=== PATIENT | female | born 1945 | race Hispanic/Latino ===

== ENCOUNTER 2018-04-19 14:10 | Inpatient (IN) | payer OTHER ==
--- NOTE | 2018-04-19 14:58 | RAD REPORT ---
EXAM DESCRIPTION: CT - Head Brain Wo Cont - 04/19/2018 2:48 pm CLINICAL HISTORY: Transient alteration of awareness COMPARISON: None. TECHNIQUE: Axial 5 mm thick images of the head were obtained without IV contrast. All CT scans are performed using dose optimization technique as appropriate and may include automated exposure control or mA/KV adjustment according to patient size. FINDINGS: No intracranial hemorrhage, mass, edema or shift of mid-line structures. Exam has motion d egradation. No cortical edema or sulcal effacement. Atrophy changes are relatively mild. Patient has advanced chronic ischemic change. Old right temporal occipital infarction changes are present. Ventri cles are in proportion to any volume loss. No abnormal extra-axial fluid collections. Mastoid air cells and visualized portions of the paranasal sinuses are clear. No acute bony findings. IMPRESSION: No hemorrhage, mass or acute intracranial finding seen. Atrophy and chronic ischemic changes are present along with old infarction change. Chronic ischemic change can mask nonhemorrhagic acute CVA.
[2018-04-19 15:12] LABS: Absolute Lymphocytes (CBC) 0.6 K/uL (0.7-4.9); Absolute Monocytes 0.4 K/uL (0.1-1.3); Absolute Neutrophil 13.5 K/uL (1.8-8.0); Basophils % 0.1 % (0-1.3); Hematocrit 32.7 % (36.0-45.0); MPV 7.6 fL (7.6-11.3); Monocytes % 2.6 % (3.3-12.3); Protime INR 3.3; RBC Red Blood Cell Count 3.29 M/uL (3.86-4.86)
[2018-04-19 15:21] LABS: Bilirubin Direct 1.3 mg/dL (0-0.2); Bilirubin Total 2.2 mg/dL (0.2-1.0); Potassium 4.1 mmol/L (3.5-5.1); Protein, Total 7.1 g/dL (6.4-8.2)
--- NOTE | 2018-04-19 15:29 | RAD REPORT ---
EXAM DESCRIPTION: RAD - Chest Single View - 04/19/2018 2:59 pm CLINICAL HISTORY: Liver failure, abnormal liver function COMPARISON: None. TECHNIQUE: AP portable chest image was obtained 1439 hour . FINDINGS: Exam is limited. There is large body habitus and substantial rotation artifact. No periphe ral mass or consolidation. Minimal failure or volume overload is not excluded. Significant pulmonary edema is not seen. Cardiomegaly is present. Vasculature within normal limits. Small right pleural eff usion is present. No acute bony abnormality seen. No acute aortic findings suspected. IMPRESSION: Cardiomegaly is present. Vasculature and lung markings are prominent with baseline unkno wn. Mild failure/ volume overload is suspected. Small right pleural effusion.
[2018-04-19 16:09] LABS: Urine Amorphous Sediment 2+ /HPF (NONE SEEN); Urine Bacteria <20 /HPF (<20); Urine Culture Reflex Order NOT NEEDED; Urine Mucus 2+ /HPF (NONE SEEN)
[2018-04-19 16:09] LABS: Urine Blood 2+ (NEG); Urine Glucose NEGATIVE (NEG); Urine Protein TRACE (NEG); Urine Specific Gravity 1.015 (1.005-1.030)
--- NOTE | 2018-04-19 16:49 | EDPHYS ---
Physician Documentation [facility] Name: Anne Moore Age: 72 yrs Sex: Female : 1945 Arrival Date: 04/19/2018 Time: 14:10 Bed 2 Private MD: ED Physician Noel Ospina HPI: 04/19 14:12 This 72 yrs old Female presents to ER via Unassigned with complaints of rn Altered Mental Status. 14:12 The patient presents with confusion. Onset: The symptoms/episode began/occurred at an rn unknown time. Possible causes: unknown. Current symptoms: In the emergency department the patient's symptoms are unchanged from the initial presentation. The patient has experienced similar episodes in the past. Per EMS, family called out for increased confusion, per report told that she has "advanced liver failure", has been compliant with lactulose and meds, no known trauma. Lays in bed most of day, found laying on right side with right arm hanging off of bed. Family states fluid tends to "favor right side". . Historical: - Allergies: 14:16 No Known Allergies; hj - PMHx: 14:16 liver disease; Dementia; hj - PSHx: 14:16 Unable to obtain; hj - Immunization history:: Adult Immunizations up to date. - Social history:: Smoking status: Patient/guardian denies using tobacco, Patient/guardian denies using alcohol. - Family history:: unknown. - Ebola Screening: : Patient negative for fever greater than or equal to 101.5 degrees Fahrenheit, and additional compatible Ebola Virus Disease symptoms Patient denies exposure to infectious person Patient denies travel to an Ebola-affected area in the 21 days before illness onset. ROS: 14:12 Unable to obtain ROS due to altered mental status. rn Exam: 14:12 Constitutional: Overweight female, not cooperative and not answering questions rn Head/Face: Normocephalic, atraumatic. Eyes: Pupils equal round and reactive to light ENT: dry MM Neck: Trachea midline, no thyromegaly or masses palpated, and no cervical lymphadenopathy. Supple, full range of motion without nuchal rigidity, or vertebral point tenderness. No Meningismus. Cardiovascular: Regular rate and rhythm. No pulse deficits. Respiratory: Diminished breath sounds bilateral bases Abdomen/GI: + protruberant abdomen with fluid wave, no peritoneal signs, no masses, + firmer skin on right abdomen. Skin: Warm, dry, + stage 2 ulcers low back MS/ Extremity: Pulses equal, no cyanosis. 3+ pitting edema RUE/RLE. Neuro: Awake, appears confused, moves all 4 extremities and withdraws to painful stimuli, but no purposeful answers. Vital Signs: 14:16 BP 161 / 114; Pulse 69; Resp 18; Pulse Ox 100% on 2 lpm NC; Weight 145.15 kg; Height 5 hj ft. 2 in. (157.48 cm); 15:36 BP 155 / 100; Pulse 66; Resp 18; Pulse Ox 100% on 2 lpm NC; hj 16:27 BP 132 / 50; Pulse 68; Resp 18; Pulse Ox 100% on R/A; hj 18:33 BP 161 / 71; Pulse 71; Resp 18; Pulse Ox 100% on 2 lpm NC; hj 19:05 BP 159 / 87; Pulse 68; Resp 17; Pulse Ox 99% 2 lpm ; rr5 20:06 BP 152 / 70; Pulse 68; Resp 18; Temp 97.8; Pulse Ox 100% ; ea 21:04 BP 153 / 75; Pulse 73; Resp 18; Pulse Ox 100% ; ea 14:16 Body Mass Index 58.53 (145.15 kg, 157.48 cm) hj MDM: 14:10 Patient medically screened. rn 16:45 Differential Diagnosis: CVA, electrolyte abnormality, hypoglycemia, pneumonia, sepsis, rn UTI, volume depletion. Data reviewed: vital signs, nurses notes, lab test result(s), EKG, radiologic studies, CT scan, plain films, and as a result, I will admit patient. Counseling: I had a detailed discussion with the patient and/or guardian regarding: the historical points, exam findings, and any diagnostic results supporting the discharge/admit diagnosis, lab results, radiology results, the need for further work-up and treatment in the hospital. Response to treatment: There is no appreciated change of the patient's symptoms at this time, and as a result, I will admit patient. Admission orders: after a detailed discussion of the patient's condition and case, the admit orders are written by me. ED course: Will admit patient to [facility] for further care, Ammonia higher but wnl, patient seems encephalopathic, recommend MRI brain to rule out CVA, and ct abd ordered to rule out infectious process in abdomen. . 04/19 14:12 Order name: CBC with Diff rn 04/19 14:12 Order name: Basic Metabolic Panel; Complete Time: 15:25 rn 04/19 14:12 Order name: Urine Microscopic Only; Complete Time: 16:18 rn 04/19 14:12 Order name: Urine Culture rn 04/19 14:12 Order name: AMMONIA; Complete Time: 15:49 rn 04/19 14:12 Order name: PT-INR; Complete Time: 15:25 rn 04/19 14:12 Order name: CT Head Brain wo Cont; Complete Time: 15:25 rn 04/19 14:12 Order name: XRAY Chest (1 view); Complete Time: 15:49 rn 04/19 14:12 Order name: Blood Culture Adult (2) rn 04/19 14:12 Order name: LFT's; Complete Time: 15:25 rn 04/19 14:12 Order name: CK; Complete Time: 15:25 rn 04/19 15:49 Order name: Urine Dipstick--Ancillary (enter results) em 04/19 16:40 Order name: CT Abd/Pelvis - W/Contrast: IV contrast only; Complete Time: 17:42 rn 04/19 14:12 Order name: IV Start; Complete Time: 15:40 rn 04/19 14:12 Order name: Urine Dipstick-Ancillary (obtain specimen); Complete Time: 15:40 rn 04/19 14:12 Order name: EKG; Complete Time: 14:13 rn 04/19 14:12 Order name: EKG - Nurse/Tech; Complete Time: 15:40 rn Administered Medications: 16:39 Drug: Lactulose 30 grams Volume: 45 ml; Route: PO; hj 16:49 Follow up: Response: No adverse reaction hj 16:42 Drug: NS 0.9% 500 ml Route: IV; Rate: bolus; Site: left forearm; hj 16:49 Follow up: IV Status: Infusion continued Disposition: 04/19/18 16:48 Hospitalization ordered by Britany Grady for Inpatient Admission. Preliminary diagnosis are Encephalopathy, unspecified, Dehydration. - Bed requested for Telemetry/MedSurg (Inpatient). - Status is Inpatient Admission. ea - Condition is Stable. - Problem is new. - Symptoms are unchanged. UTI on Admission? No Signatures: Dispatcher [employer] EDMS Noel Ospina MD MD rn Joaquin, Henry RN Loree Hurtado RN RN df Antunez, Elena, RN RN ea Corrections: (The following items were deleted from the chart) 16:42 14:12 Constitutional: Overweight female, not cooperative and not answering questions rn Head/Face: Normocephalic, atraumatic. Eyes: Pupils equal round and reactive to light ENT: dry MM Neck: Trachea midline, no thyromegaly or masses palpated, and no cervical lymphadenopathy. Supple, full range of motion without nuchal rigidity, or vertebral point tenderness. No Meningismus. Cardiovascular: Regular rate and rhythm. No pulse deficits. Respiratory: Diminished breath sounds bilateral bases Abdomen/GI: + protruberant abdomen with fluid wave, no peritoneal signs, no masses, + firmer skin on right abdomen. MS/ Extremity: Pulses equal, no cyanosis. 3+ pitting edema RUE/RLE. Neuro: Awake, appears confused, moves all 4 extremities and withdraws to painful stimuli, but no purposeful answers. rn 18:15 16:48 Hospitalization Ordered by Britany Grady MD for Inpatient Admission. Preliminary df diagnosis is Encephalopathy, unspecified; Dehydration. Bed requested for Telemetry/MedSurg (Inpatient). Status is Inpatient Admission. Condition is Stable. Problem is new. Symptoms are unchanged. UTI on Admission? No. rn 21:05 18:15 04/19/2018 16:48 Hospitalization Ordered by Britany Grady MD for Inpatient ea Admission. Preliminary diagnosis is Encephalopathy, unspecified; Dehydration. Bed requested for Telemetry/MedSurg (Inpatient). Status is Inpatient Admission. Condition is Stable. Problem is new. Symptoms are unchanged. UTI on Admission? No. df
--- NOTE | 2018-04-19 16:49 | ER ---
Nurse's Notes [facility] Name: Anne Moore Age: 72 yrs Sex: Female : 1945 Arrival Date: 04/19/2018 Time: 14:10 Bed 2 Private MD: Diagnosis: Encephalopathy, unspecified;Dehydration Presentation: 04/19 14:12 Presenting complaint: EMS states: from [place], called for pt on altered mental hj status, hx of liver failure, obesity; per EMS, pt is A\T\O x1-2; BP- stable, presence of edema;. Transition of care: patient was not received from another setting of care. Onset of symptoms was April 19, 2018. Risk Assessment: Do you want to hurt yourself or someone else? Patient reports no desire to harm self or others. Initial Sepsis Screen: Does the patient meet any 2 criteria? No. Patient's initial sepsis screen is negative. Does the patient have a suspected source of infection? No. Patient's initial sepsis screen is negative. Care prior to arrival: None. 14:12 Method Of Arrival: EMS: [facility] 14:12 Acuity: JUAN 3 hj Triage Assessment: 14:17 General: Appears in no apparent distress. uncomfortable, Behavior is calm, cooperative, hj appropriate for age. Pain: Unable to use pain scale. AMS. Neuro: Level of Consciousness is awake, Oriented to none. Historical: - Allergies: 14:16 No Known Allergies; hj - PMHx: 14:16 liver disease; Dementia; hj - PSHx: 14:16 Unable to obtain; hj - Immunization history:: Adult Immunizations up to date. - Social history:: Smoking status: Patient/guardian denies using tobacco, Patient/guardian denies using alcohol. - Family history:: unknown. - Ebola Screening: : Patient negative for fever greater than or equal to 101.5 degrees Fahrenheit, and additional compatible Ebola Virus Disease symptoms Patient denies exposure to infectious person Patient denies travel to an Ebola-affected area in the 21 days before illness onset. Screenin:17 Abuse screen: Denies threats or abuse. Denies injuries from another. Nutritional hj screening: No deficits noted. Tuberculosis screening: No symptoms or risk factors identified. Fall Risk None identified. Assessment: 15:21 General: Appears in no apparent distress. uncomfortable, Behavior is calm, cooperative, hj appropriate for age. Pain: Unable to use pain scale. Patient is disoriented. Neuro: Level of Consciousness is awake, confused, Oriented to none. Cardiovascular: Capillary refill < 3 seconds Patient's skin is warm and dry. Respiratory: Airway is patent Respiratory effort is even, unlabored, Respiratory pattern is regular, symmetrical. GI: No signs and/or symptoms were reported involving the gastrointestinal system. : No signs and/or symptoms were reported regarding the genitourinary system. EENT: No signs and/or symptoms were reported regarding the EENT system. Derm: Decubitus located on bilateral buttocks is stage II has erythematous edges Reports. 16:26 Reassessment: Patient and/or family updated on plan of care and expected duration. Pain hj level reassessed. family in room, awaiting results and POC:. 16:51 Reassessment: Patient and/or family updated on plan of care and expected duration. Pain hj level reassessed. pt refused to drink lactulose; MD notified;. 17:00 Reassessment: Patient and/or family updated on plan of care and expected duration. Pain hj level reassessed. pt was given lactulose 3 mls at a time using syringes; able to tolerate;. 17:15 Reassessment: wheeled to CT;. hj 17:30 Reassessment: Patient and/or family updated on plan of care and expected duration. Pain hj level reassessed. wheeled back to room from CT;. 19:00 General: Appears in no apparent distress. uncomfortable, Behavior is calm. Pain: Unable rr5 to use pain scale. Patient is disoriented. Neuro: Level of Consciousness is awake, confused, Oriented to none. Cardiovascular: Capillary refill < 3 seconds Patient's skin is warm and dry. Respiratory: Airway is patent Respiratory effort is even, unlabored, Respiratory pattern is regular, symmetrical. GI: Abdomen is obese. : Urine is tea colored. EENT: No signs and/or symptoms were reported regarding the EENT system. Derm: Skin is intact, Skin temperature is warm Decubitus located on bilateral bilateral gluteal, skin folds groin area raw redness noted is stage II has erythematous edges. 19:00 Musculoskeletal: Capillary refill < 3 seconds. rr5 19:30 General: Appears in no apparent distress. Behavior is drowsy. Pain: Denies pain. Neuro: ea Level of Consciousness is awake, confused, Oriented to person. Cardiovascular: Patient's skin is warm and dry. Respiratory: Airway is patent Respiratory effort is even, unlabored, Respiratory pattern is regular, symmetrical. GI: Abdomen is obese, noted to have ascites. Derm: Skin is fragile, Skin temperature is warm discoloration noted to tito lower extremities Decubitus. 20:04 Reassessment: Report called to receiving nurse on fourth floor. ea 21:02 Reassessment: Patient and/or family updated on plan of care and expected duration. Pain ea level reassessed. Pt taken via stretcher per tech. Respirations even and unlabored, chest expansions even and symmetrical. No s/s of pain or discomfort at this time. Vital Signs: 14:16 BP 161 / 114; Pulse 69; Resp 18; Pulse Ox 100% on 2 lpm NC; Weight 145.15 kg; Height 5 hj ft. 2 in. (157.48 cm); 15:36 BP 155 / 100; Pulse 66; Resp 18; Pulse Ox 100% on 2 lpm NC; hj 16:27 BP 132 / 50; Pulse 68; Resp 18; Pulse Ox 100% on R/A; hj 18:33 BP 161 / 71; Pulse 71; Resp 18; Pulse Ox 100% on 2 lpm NC; hj 19:05 BP 159 / 87; Pulse 68; Resp 17; Pulse Ox 99% 2 lpm ; rr5 20:06 BP 152 / 70; Pulse 68; Resp 18; Temp 97.8; Pulse Ox 100% ; ea 21:04 BP 153 / 75; Pulse 73; Resp 18; Pulse Ox 100% ; ea 14:16 Body Mass Index 58.53 (145.15 kg, 157.48 cm) ED Course: 14:10 Patient arrived in ED. hj 14:10 Noel Ospina MD is Attending Physician. rn 14:14 Triage completed. hj 14:18 Amos Gil, RADHA is Primary Nurse. hj 14:18 Arm band placed on right wrist. hj 14:18 Patient has correct armband on for positive identification. Placed in gown. Bed in low hj position. Call light in reach. Side rails up X2. 14:40 X-ray completed. Portable x-ray completed in exam room. Patient tolerated procedure jb2 well. 14:41 XRAY Chest (1 view) In Process Unspecified. EDMS 14:45 CT Head Brain wo Cont In Process Unspecified. EDMS 14:45 Initial lab(s) drawn, by me, sent to lab. First set of blood cultures drawn by me. hj 14:48 EKG done, by animal health technician. reviewed by Noel Ospina MD. at1 15:00 Second set of blood cultures drawn by me. hj 15:37 Inserted saline lock: 22 gauge in left Blood collected. hj 15:40 Dressings: Tegaderm X 2; buttocks Vaseline gauze X 2; buttocks. Goodson cath inserted, ag using sterile technique, 16 Fr., by me, balloon inflated, to gravity drainage, clamped. urine specimen collected. 16:47 Britany Grady MD is Hospitalizing Provider. rn 16:[address] via stretcher. nj 17:18 CT completed. Patient tolerated procedure well. Patient moved back from CT. 2 17:18 CT Abd/Pelvis - W/Contrast: IV contrast only In Process Unspecified. EDMS 19:00 cardiac monitor on. Pulse ox on. NIBP on. rr5 19:15 Tl Vega, RADHA is Primary Nurse. rr5 20:02 No provider procedures requiring assistance completed. Patient admitted, IV remains in ea place. Administered Medications: 16:39 Drug: Lactulose 30 grams Volume: 45 ml; Route: PO; hj 16:49 Follow up: Response: No adverse reaction hj 16:42 Drug: NS 0.9% 500 ml Route: IV; Rate: bolus; Site: left forearm; hj 16:49 Follow up: IV Status: Infusion continued Outcome: 16:48 Decision to Hospitalize by Provider. rn 19:30 Instructed on Family educated on need for hospitalization, verbalized the understanding ea of instruction 20:09 Condition: stable ea 20:12 Admitted to Med/surg accompanied by tech, via stretcher, room 228, with oxygen, Report ea called to Receiving nurse on second floor. 21:05 Patient left the ED. ea Signatures: Dispatcher [employer] EDTN Cornelio Holden2 Noel Ospina MD MD rn Gonzales, Amanda, cement side laster EKG Tat1 Arely Hu ag Amos Gil RN RN Orlin Segura [facility] Tessie Joe, RN RN Tl Smith, RN RN rr5 Corrections: (The following items were deleted from the chart) 15:37 15:36 BP 155 / 100; Pulse 52bpm; Resp 18bpm; Pulse Ox 100% 2 lpm Nasal Cannula; hj hj 21:01 20:04 Reassessment: Report called to receiving nurse on fourth floor. shae kaufman 21: 21:02 Reassessment: Patient and/or family updated on plan of care and expected ea duration. Pain level reassessed. Pt taken via stretcher per tech. ea
[2018-04-19] MEDS ORDERED: LACTULOSE 20 GM/30 ML UCUP ONE (16:52)
[2018-04-19] MEDS ORDERED: NA CHLORIDE 0.9% 500 ML ONE (16:56)
--- NOTE | 2018-04-19 17:28 | RAD REPORT ---
EXAM DESCRIPTION: CTAbdomen Pelvis W Contrast - 04/19/2018 5:18 pm CLINICAL HISTORY: Abdominal pain. AMS, liver failure, ascites, IV contrast only COMPARISON: No comparisons TECHNIQUE: Biphasic CT imaging of the abdomen and pelvis was performed with 100 ml non-ionic IV cont rast. All CT scans are performed using dose optimization technique as appropriate and may include automated exposure control or mA/KV adjustment according to patient size. FINDINGS: Small moderate right pleural effusion is seen with right basilar atelectasis. The liver is small size with an irregular contour suggesting cirrhotic changes. Overall, liver assess ment is poor due to artifact. The spleen, pancreas, adrenal glands and kidneys show no acute process. No bowel obstruction, free air, free fluid or abscess. 4.5 cm left adnexal cystic structure present. The appendix is normal. No evidence of significant lymphadenopathy. No suspicious bony findings. IMPRESSION: Small cirrhotic liver suspected. No significant ascites. Moderate right pleural effusion right basilar atelectasis.
[2018-04-19] MEDS ORDERED: ONDANSETRON 4 MG/2 ML VIAL IV PRN (20:22)
[2018-04-19 22:19] LABS: Anisocytosis 2+; Blood Morphology Comment NOTED (NOT SEEN); Platelet Estimate ADEQ; Toxic Granulation PRESENT; Urine White Blood Cell Casts OK
[2018-04-20 05:41] LABS: Absolute Lymphocytes (CBC) 0.7 K/uL (0.7-4.9); Absolute Monocytes 0.7 K/uL (0.1-1.3); Absolute Neutrophil 13.6 K/uL (1.8-8.0); Basophils % 0.1 % (0-1.3); Eosinophils % 0.4 % (0-4.4); Hematocrit 34.6 % (36.0-45.0); Lymphocytes % 4.9 % (15.3-44.8); MPV 7.8 fL (7.6-11.3); Monocytes % 4.6 % (3.3-12.3); RBC Red Blood Cell Count 3.43 M/uL (3.86-4.86)
[2018-04-20 06:03] LABS: Bilirubin Total 2.2 mg/dL (0.2-1.0); Potassium 4.5 mmol/L (3.5-5.1); Protein, Total 6.9 g/dL (6.4-8.2)
[2018-04-20] MEDS: LACTULOSE 20 GM/30 ML UCUP PO SCH ×3 (07:00→18:19)
[2018-04-20] MEDS ORDERED: NA CHLORIDE 0.9% 1,000 ML IV SCH (07:00)
[2018-04-20] MEDS: Rifaximin 550 MG Tab PO SCH ×2 (07:00→22:07)
[2018-04-20] MEDS ORDERED: NA CHLORIDE 0.9% 1,000 ML ONE (07:02)
[2018-04-20] MEDS ORDERED: ALBUMIN HUMAN 25% 100 ML IV ONE ×2 (07:22→11:02)
[2018-04-20] MEDS ORDERED: LACTULOSE 20 GM/30 ML UCUP PR ONE (07:30)
[2018-04-20 07:33] LABS: Urine Appearance CLEAR; Urine Bilirubin NEGATIVE (NEG); Urine Blood 3+ (NEG); Urine Color DK YELLOW; Urine Glucose NEGATIVE (NEG); Urine Protein NEGATIVE (NEG); Urine Specific Gravity >=1.030 (1.005-1.030); Urine Urobilinogen 0.2 mg/dL (0.2-1.0); Urine pH 5.5 (5.0-7.0)
[2018-04-20 07:40] LABS: Urine Microscopic Reflex ORDER UMIC
[2018-04-20 07:44] LABS: Urine Bacteria <20 /HPF (<20); Urine Culture Reflex Order REFLEXED; Urine RBC 20-50 /HPF (NONE SEEN)
[2018-04-20] MEDS ORDERED: VITAMIN K (ADULT) 10 MG/ML SQ ONE (08:00)
--- NOTE | 2018-04-20 08:19 | P.HP ---
Certification for Inpatient Patient admitted to: Inpatient With expected LOS: >2 Midnights Patient will require the following post-hospital care: None Practitioner: I am a practitioner with admitting privileges, knowledge of patient current condition, hospital course, and medical plan of care. Services: Services provided to patient in accordance with Admission requirements found in Title 42 Section 412.3 of the Code of Federal Regulations Patient History Date of Service: 04/19/18 Reason for admission: Hepatic encephalopathy History of Present Illness: Patient is a 72-year-old female came into the hospital with altered mentation. Patient was living at [facility]. The son came to visit and found her arm dangling from the bed. She was lethargic. She was difficult to arouse, but would open her eyes up to up to stimuli. In the ER, she was given lactulose and had multiple diagnostic studies. Her lab data indicated advancing liver disease. Her MELD score is approximately 25. Increase mortality over the next 90 days. Patient is not a good candidate for any kind of advance surgical intervention. Have not been able to get a hold of the son as the phone numbers in the chart are incorrect. Spoke to the nursing facility and they did not have any different numbers. They do not have a DNR on file. At this time will continue with the lactulose and Rifaximin to her medications. CT of the brain was negative. She also has multiple wounds on her right foot can her lower back. Will get wound Healing Consult as well. Repeat labs in a.m. Allergies No Known Allergies Allergy (Unverified 04/19/18 22:05) Home Medications: Guaifenesin/Dextromethorphan [Guaifenesin Dm Syrup] 10 ml PO Q4H PRN 04/19/18 Metoprolol Tartrate 1 tab PO BID 04/19/18 Multivitamin [Multiple Vitamins] 1 each PO DAILY 04/19/18 Rivastigmine Tartate 1.5 Mg 1 cap PO BID 04/19/18 Tramadol HCl [Ultram] 2 tab PO Q6H PRN 04/19/18 Zinc 220 mg PO DAILY 04/19/18 - Past Medical/Surgical History Has patient received pneumonia vaccine in the past: No Diabetic: No -: HTN -: dementia -: Depression -: End-stage liver disease -: Anxiety Past Surgical History: Unable to obtain - Family History Father Family History: Reviewed- Non-Contributory - Social History Smoking Status: Never smoker Alcohol use: No CD- Drugs: No Caffeine use: Yes Place of Residence: Custodial Review of Systems 10-point ROS is otherwise unremarkable Physical Examination - Vital Signs Temperature: 97.5 F Blood Pressure: 147/65 Pulse: 84 Respirations: 16 Pulse Ox (%): 100 - Physical Exam General: Confused, Other (Pt is difficult to arouse to response to painful stimuli) HEENT: Atraumatic, PERRLA, Mucous membr. moist/pink, EOMI, Scleral icterus Neck: Supple, 2+ carotid pulse no bruit, No LAD, Without JVD or thyroid abnormality Respiratory: Diminished Cardiovascular: Regular rate/rhythm, Normal S1 S2, Systolic murmur Gastrointestinal: Normal bowel sounds, Soft and benign, Non-distended, No tenderness Musculoskeletal: No clubbing, No tenderness, Swelling Integumentary: Pressure ulcer (On the lower back times to as well as the right foot/heel) Neurological: Abnormal gait, Abnormal speech, Abnormal strength, Abnormal cranial nerve function Lymphatics: No axilla or inguinal lymphadenopathy - Studies Laboratory Data (last 24 hrs) 04/19/18 14:40: PT 37.2 H, INR 3.30 04/19/18 14:40: Sodium 138, Potassium 4.1, BUN 39 H, Creatinine 1.16, Glucose 100, Total Bilirubin 2.2 H, AST 99 H, ALT 30, Alkaline Phosphatase 272 H 04/19/18 14:40: WBC 14.5 H D, Hgb 10.8 L, Hct 32.7 L, Plt Count 165 Assessment & Plan - Problems (Diagnosis) (1) Hepatic encephalopathy Current Visit: Yes Status: Acute (2) End stage liver disease Current Visit: Yes Status: Acute (3) Coagulopathy Current Visit: Yes Status: Acute - Plan PLAN: 1. Continue lactulose and rifaximin 2. Gentle hydration 3. Discuss with family regarding code status 4. If unable to swallow retention enema 5. Vitamin K 6. IV albumin 7. Poor prognosis with a meld score of 25. 90 day mortality estimated at 20%. 8. GI prophylaxis Discharge Plan: Custodial Plan to discharge in: Greater than 2 days - Advance Directives Does patient have a Living Will: No Does patient have a Durable POA for Healthcare: No - Code Status/Comfort Care Code Status Assessed: Yes Code Status: Full Code Critical Care: No Time Spent Managing PTS Care (In Minutes): 50
--- NOTE | 2018-04-20 08:42 | P.PN ---
Date of Service: 04/20/18 Got a hold of son Tyler Moore, . Updated him on his mother status. Spoke to him about her end-stage liver disease. He wanted her to be a full code. Will transfer to ICU and monitor closely.
[2018-04-20] MEDS: METOPROLOL TAR 25 MG TAB PO SCH ×2 (09:00→18:16)
[2018-04-20] MEDS ORDERED: levETIRAcetam 500 MG in NA CHLORIDE 0.9% 100 ML IV SCH (09:54)
[2018-04-20] MEDS ORDERED: PNEUMOCOCCAL VACCINE 0.5 ML IMVAC ONE (10:00)
[2018-04-20 10:47] LABS: Arterial Blood Carboxyhemoglob 1.4 % (0-1.5); Blood Gas Oxyhemoglobin 96.9 % (94-97); Blood O2 Saturation 98.9 % (92-98.5)
[2018-04-20 11:01] LABS: Absolute Lymphocytes (CBC) 0.7 K/uL (0.7-4.9); Absolute Monocytes 0.3 K/uL (0.1-1.3); Absolute Neutrophil 9.1 K/uL (1.8-8.0); Basophils % 0.2 % (0-1.3); Lymphocytes % 6.7 % (15.3-44.8); MPV 8.5 fL (7.6-11.3); Monocytes % 3.2 % (3.3-12.3); RBC Red Blood Cell Count 4.73 M/uL (3.86-4.86)
[2018-04-20] MEDS ORDERED: SODIUM CHLORIDE 0.9% 10ML INJ IV PRN (11:04)
[2018-04-20 11:09] LABS: Albumin 1.2 g/dL (3.4-5.0); Bilirubin Total 2.4 mg/dL (0.2-1.0); Potassium 4.1 mmol/L (3.5-5.1); Protein, Total 7.2 g/dL (6.4-8.2)
[2018-04-20] MEDS ORDERED: CEFTRIAXONE/SWI 1gm 1 GM/10 ML SYR IV SCH (11:15)
[2018-04-20] MEDS ORDERED: D50W 25 GM/50 ML SYRINGE IV ONE ×2 (11:27→12:40)
--- NOTE | 2018-04-20 12:21 | RAD REPORT ---
EXAM DESCRIPTION: MRI - Brain W/Wo Cont - 04/20/2018 11:49 am CLINICAL HISTORY: Transient alteration of awareness, stroke-like symptoms, abnormal CT head COMPARISON: CT head April 19 TECHNIQUE: Sagittal and axial T1-weighted images were obtained. Axial PD/heavily T2-weighted and T2- FLAIR images were obtained along with axial DWI/ADC mapping sequences. Coronal heavily T2 weighted s equence obtained. Axial and coronal post-contrast T1-weighted images were also obtained. A ml Multi shawnee contrast following utilized. FINDINGS: No intracranial hemorrhage is present and no focal mass lesion identified. There is no mas s effect, edema or shift of midline structures. Underlying atrophy and chronic ischemic changes are n oted with ventricles in proportion. Diffusion-weighted imaging shows extensive abnormal hyperintense signal along the gyri of the bilater al frontal lobes left parietal lobe and the lateral aspect of the left occipital lobe and posterior l eft temporal lobe. A few punctate patchy areas of hyperintense signal are present in the posterior ri ght temporal lobe. Abnormal signal extends deeper into the white matter of the left frontal and parie guzman lobes. All areas have corresponding diminished signal on ADC mapping. Post-contrast view show no abnormal enhancement of the brain parenchyma. There is thickened but does not abnormally enhance. No focal dural based mass. Small fluid collection along the left frontal lobe is probably a small chronic subdural hygroma. This is not an acute finding. Mastoid air cells and paranasal sinuses are clear. IMPRESSION: Very extensive acute nonhemorrhagic infarction changes involving the majority of the lef t cerebral hemisphere in the distribution of the left middle cerebral artery. Extensive acute nonhemorrhagic infarction of substantial portion of the right frontal lobe. No intracranial hemorrhage. There is no significant mass effect, edema or shift of midline structures . Underlying atrophy and chronic ischemic change.
--- NOTE | 2018-04-20 12:25 | RAD REPORT ---
EXAM DESCRIPTION: MRI - MRA Head Wo Cont - 04/20/2018 11:48 am CLINICAL HISTORY: Transient alteration of awareness, stroke-like symptoms, COMPARISON: Abnormal CT head April 19, abnormal MRI head April 20 TECHNIQUE: Axial and coronal 3D [id number] image acquisition was performed. 3D rotational images were generated with source and reconstruction images reviewed. Horizontal and vertical axis rotation al views generated using MIP protocol. FINDINGS: Distal vertebral arteries are codominant. No focal basilar artery abnormality seen. Distal internal carotid artery show no significant findings. The M1 branches of each middle cerebral artery show atherosclerotic change. There is truncation or nonvisualization of the M2 and distal branches o f each middle cerebral artery distribution. This generally matches the large infarction changes seen on the MR brain examination. Anterior cerebral artery vessels are small but not occluded. Posterior c erebral arteries are small in the P1 segments. More peripheral [employer] branches are poorly visualized. Th ere is no matching acute infarction on the CT study in the middle cerebral artery distributions. IMPRESSION: Truncated is bilateral middle cerebral artery M2/M3 branches. This pattern generally mat ches the extensive MCA distribution infarction changes on the MRI brain examination. The distal internal carotid artery's and basilar artery show no significant changes. The anterior cerebral and posterior cerebral artery branches show diminished size and truncation in t he posterior cerebral arteries. There are no matching acute infarction changes in these distributions .
--- NOTE | 2018-04-20 12:30 | RAD REPORT ---
EXAM DESCRIPTION: MRI - MRA Neck W/Wo Cont - 04/20/2018 12:02 pm CLINICAL HISTORY: Transient alteration of awareness, stroke-like symptoms, abnormal CT and MRI studi es COMPARISON: MRI imaging April 20, CT head imaging April 19 TECHNIQUE: Axial and coronal 3D [id number] image acquisition was performed. 3D rotational images were generated with source and reconstruction images reviewed. Horizontal and vertical axis rotation al views generated using MIP protocol. A 20 milliliter MultiHance contrast volume was utilized. FINDINGS: Aortic arch is 3 vessel with no origin stenosis. Origins of each vertebral artery are norm al. Vertebral arteries are codominant. No dissection, stenosis or acute vertebral artery finding. No basilar artery abnormality. Imaged portions of the subclavian arteries show no significant findings. Bilateral common carotid artery show no dissection or significant stenosis. No aneurysm or vascular m alformation. There is a short segment bandlike narrowing at the origin of the bulb. This is probably not hemodynamically significant. No significant stenoses seen in the bilateral internal carotid arter ies. IMPRESSION: No dissection or significant atherosclerotic changes in the cervical carotid or vertebra l arteries. No basilar artery stenosis.
[2018-04-20 12:56] LABS: Blood Morphology Comment NOT SEEN (NOT SEEN); Platelet Estimate DECR; Urine White Blood Cell Casts OK
[2018-04-20] MEDS: D5W 1,000 ML IV SCH (13:00)
--- NOTE | 2018-04-20 13:45 | RAD REPORT ---
EXAM DESCRIPTION: RAD - Abdomen 1 View (KUB) - 04/20/2018 1:39 pm CLINICAL HISTORY: NGT placement Pain COMPARISON: No comparisons FINDINGS: Enteric tube has its tip in the distal esophagus.
[2018-04-20] MEDS: CEFTRIAXONE/SWI 1gm 1 GM/10 ML SYR IV SCH (13:54)
--- NOTE | 2018-04-20 15:05 | RAD REPORT ---
EXAM DESCRIPTION: US - Abdomen Exam Complete - 04/20/2018 2:51 pm CLINICAL HISTORY: Abdominal pain. AMS COMPARISON: Abdomen Pelvis W Contrast dated 04/19/2018 FINDINGS: The examination was extremely limited by patient body habitus and clinical status. The liver appears small in size with nodular contour. No gross biliary dilatation seen. A right pleur al effusion is present. The gallbladder is not identified. Common bile duct is normal in caliber measuring 5 millimeters. Both kidneys are normal in size, shape and echotexture. No hydronephrosis, focal lesion of concern or perinephric fluid. The spleen is normal in size. The pancreas and aorta are obscured by bowel gas. The visualized aspects of the IVC are grossly normal. IMPRESSION: Extremely limited study without acute process identified. Small cirrhotic liver suspected. Small right pleural effusion.
[2018-04-20 15:27] LABS: Urine Appearance CLEAR; Urine Bilirubin NEGATIVE (NEG); Urine Blood 3+ (NEG); Urine Color DK YELLOW; Urine Glucose NEGATIVE (NEG); Urine Protein NEGATIVE (NEG); Urine Specific Gravity >=1.030 (1.005-1.030); Urine Urobilinogen 0.2 mg/dL (0.2-1.0)
[2018-04-20 16:00] LABS: Urine Bacteria 20-50 /HPF (<20); Urine Culture Reflex Order NOT NEEDED; Urine RBC 20-50 /HPF (NONE SEEN)
[2018-04-20] MEDS ORDERED: levETIRAcetam 500 MG in NA CHLORIDE 0.9% 100 ML IV ONE (17:30)
--- NOTE | 2018-04-20 17:43 | RAD REPORT ---
EXAM DESCRIPTION: RAD - Chest Single View - 04/20/2018 5:20 pm CLINICAL HISTORY: PICC line placement COMPARISON: None. FINDINGS: Portable chest was obtained following placement of a left upper extremity PICC line. The c atheter tip is in the mid SVC.
[2018-04-20] MEDS ORDERED: LORazepam 2 MG/ML VIAL IV PRN ×2 (17:49→19:23)
--- NOTE | 2018-04-20 18:19 | P.PN ---
Subjective Date of Service: 04/20/18 Chief Complaint: Hepatic encephalopathy Review of Systems 10-point ROS is otherwise unremarkable Physical Examination - Vital Signs Temperature: 97.5 F Blood Pressure: 117/70 Pulse: 80 Respirations: 33 Pulse Ox (%): 100 - Physical Exam General: Confused, Unresponsive (Responding to painful stimuli), Other ( Lethargic ) HEENT: Atraumatic Neck: Supple, JVD not distended Respiratory: Normal air movement, Crackles/rales, Expiratory wheezes, Inspiratory wheezes Cardiovascular: Normal S1 S2, Irregular heart rate/rhythm Gastrointestinal: Normal bowel sounds, Distended, Ascites, Tenderness Musculoskeletal: Swelling, Erythema, Tenderness, Warmth Integumentary: Skin breakdown, Pressure ulcer Neurological: Abnormal speech, Abnormal strength, Abnormal sensation, Abnormal cranial nerve function, Abnormal reflexes Lymphatics: No axilla or inguinal lymphadenopathy - Studies Laboratory Data (last 24 hrs) 04/20/18 05:20: Sodium 138, Potassium 4.5, BUN 42 H, Creatinine 1.19, Glucose 57 L, Total Bilirubin 2.2 H, AST 106 H, ALT 29, Alkaline Phosphatase 248 H 04/20/18 05:20: WBC 15.1 H, Hgb 11.5 L, Hct 34.6 L, Plt Count 129 L D 04/19/18 14:40: WBC 14.5 H D, Hgb 10.8 L, Hct 32.7 L, Plt Count 165 Medications List Reviewed: Yes Assessment And Plan - Current Problems (Diagnosis) (1) Acute CVA (cerebrovascular accident) Current Visit: Yes Status: Acute Plan: Acute CVA -MRI of the brain with: Very extensive acute nonhemorrhagic infarction changes involving the majority of the left cerebral hemisphere in the distribution of the left middle cerebral artery, and Extensive acute non hemorrhagic infarction of substantial portion of the right frontal lobe. -Neurology consulted. Awaiting reccs -Not a candidate for Anticoagulation or statin due to ESLD -Keppra for seizure prevention -Will Monitor closely in the ICU (2) Liver cirrhosis Current Visit: Yes Status: Chronic Plan: ESLD with MELD score of 25 and poor prognosis -extensive discussion with the family regarding code status, Mortality and prognosis -Pt made DNR/DNI Qualifiers: Hepatic cirrhosis type: unspecified hepatic cirrhosis Ascites presence: with ascites Qualified Code(s): K74.60 - Unspecified cirrhosis of liver; R18.8 - Other ascites (3) Anasarca Current Visit: Yes Status: Chronic Plan: IV lasix with albumin (4) HTN (hypertension) Current Visit: Yes Status: Chronic Qualifiers: Hypertension type: essential hypertension Qualified Code(s): I10 - Essential (primary) hypertension (5) Dementia Current Visit: Yes Status: Chronic Qualifiers: Dementia type: vascular dementia Dementia behavioral disturbance: without behavioral disturbance Qualified Code(s): F01.50 - Vascular dementia without behavioral disturbance (6) Stage III pressure ulcer Current Visit: Yes Status: Chronic Qualifiers: Pressure injury location: buttock Laterality: right Qualified Code(s): L89.313 - Pressure ulcer of right buttock, stage 3 Discharge Plan: Other Plan to discharge in: Greater than 2 days - Code Status/Comfort Care Code Status Assessed: Yes Critical Care: No
[2018-04-20 19:02] LABS: Protime INR 3.83
[2018-04-20] MEDS: PANTOPRAZOLE 40 MG INJ IVP SCH (22:07)
[2018-04-20] MEDS: JUVEN PACKET PO SCH (22:08)
--- NOTE | 2018-04-21 01:05 | CON ---
Reason For Consultation: Consultation called because of acute strokes. History Of Present Illness: Ms. Moore is a 72-year-old patient who resides in [facility]. On yesterday, she was found unresponsive with the right arm hanging at her side. She was arousable but had to be continuously stimulated. Prior to that, reportedly she was able to eat, interact, and speak, and did have focal deficits. At [facility], she was diagnosed wi th actually an ongoing chronic condition of liver dysfunction and blood work did reveal elevated leve ls of ammonia for which she was treated with lactulose. Ammonia level was 50 at the time of her admi ssion. She did not regain interaction or awareness, and further evaluation including head CT scan wh ich was unremarkable for acute ischemic or hemorrhagic stroke. Although, the brain CT scan did show atrophy and chronic ischemic changes with an old infarct noted in the right temporooccipital junction . There is also advanced chronic ischemic disease. Subsequent brain MRI done earlier today identifi ed large, bilateral middle cerebral artery territory strokes, very extensive, noted more on the left and also on the right. The magnetic resonance angiogram of the head vessels showed bilaterally M2 an d M3 branches appeared to be occluded or truncated, and that did match the strokes noted on the MRI. Also noted the anterior cerebral artery and posterior cerebral artery branches show diminished size, but there is no matching infarct in those territories. The patient's INR has been elevated because of her liver dysfunction to around 3.83, and she is not c urrently on any anticoagulation as a result of that. It should be noted that while in the intensive care unit, she did have very frequent jaw chewing movements and makes growling sounds occasionally. The EEG at the time was done; it showed a near continuous muscle artifact, could not be interpreted a s the muscle artifact dominated the EEG and no brain activity could be observed because it was obscur ed by the EMG artifact. Past Medical History: Significant for hypertension, chronic liver disease, dementia, anxiety, and de pression. Allergies: NO KNOWN DRUG ALLERGIES. Medications At Home: Include metoprolol, multivitamin, rivastigmine, Ultram, and zinc supplementatio n. Family History: Noncontributory. Social History: Resides in senior living. No alcohol, tobacco, or IV drug use. Review of Systems: Unable to complete. The patient is in ICU, unresponsive to verbal commands. Physical Examination: Vital Signs: Blood pressure 139/55, pulse 70, respiratory rate up to 28, temperature 97.5, oxygen sa turation 100%, weight 278 pounds, height 5 feet 2 inches. General: Ms. Moore is resting in the ICU. She is a 'do not resuscitate' and 'do not intubate' stat us. Head: She is normocephalic and atraumatic. Extremities: She does have some swelling noted in the arms and legs with little bit of edema. Lungs: She does have good air movement bilaterally. Abdomen: Appears soft. Neuro: There are intermittent chewing motions noted in the jaw and occasional grunting sounds. No s pontaneous eye opening or tracking. Neurologically, she does not open eyes spontaneously, does not t rack. In terms of visual confrontation, she does not show visual threat response. She does have Dol l's eyes response and there is pupillary response. She of course is breathing independently. Face a ppears to be symmetric despite the reported strokes. The arm showed no voluntary movement. She did not have any focal responses of withdrawal when stimulating both the upper and lower extremities. Un able to assess sensation, coordination, gait. Her tone appears to be symmetric and normal. Laboratory Studies: White blood cell count was earlier today 15.1 with 90% neutrophils, now 10.2 wit h 89.9% neutrophils, hemoglobin 15.5, hematocrit 47.0, INR 3.83. Arterial blood gas; pH 7.47, pCO2 2 7.8, PO2 118. Chemistries; sodium 139, potassium 4.1, chloride 108, carbon dioxide 23, BUN 41, creat inine 1.19, glucose ranged from 45 to 100. Current AST 111, ALT 30, alkaline phosphatase 254. Tramaine ia is 30. Urinalysis shows 3+ blood, 1+ esterase, 5-10 white blood cells, 20-50 bacteria. Cultures of urine catheter showed between 10,000 and 100,000 colony-forming units. Anaerobic and aerobic bloo d cultures show no growth in 24 hours. For wound in the buttocks, cultures are pending. Chest x-ray shows catheter tip in the mid superior vena cava. A KUB x-ray showed an enteric tube and the tip at distal esophagus. No documented electrocardiogram present. Assessment: Ms. 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 She does have liver failure and is showing rhythmic myoclonic type activity in the jaw and tongue. EEG does not show apparent seizure activity and it is obscured by myogenic artifact. However, given the patient's bilateral MCA acute strokes, the possible source is likely cardioembolic in terms of the etiology of her strokes and that may be related to atrial fib rillation. Given the large distributions of both strokes, the patient does have a very poor prognosi s for recovery. It should be noted that 3-5 days after the acute event is when brain swelling is the most and she is at great risk of herniation. At this point, the further intervention, neurologicall y or neurosurgically, is not recommended as the patient has a very poor prognosis for any meaningful recovery. The current code status of 'do not resuscitate' and 'do not intubate' is appropriate and t he family should have a full discussion of this and may potentially make decisions depending on how s he does over the next few days for withdrawal of care in terms of supportive care. Plan: 1.At this point, no further intervention, although she is on Keppra, and Keppra may be continued at 1000 mg twice a day. I would not recommend Dilantin or medications that are metabolized through the liver. 2.I may give Ativan as needed to help reduce the myoclonic activity. This will be discussed with family members when they return or at their convenience. FRITZ/GLENNA Voice ID: [id number] Report ID: [id number]
[2018-04-21] MEDS: LACTULOSE 20 GM/30 ML UCUP PO SCH ×4 (02:22→17:50)
[2018-04-21] MEDS: D5W 1,000 ML IV SCH ×2 (02:22→20:11)
[2018-04-21 06:03] LABS: Absolute Lymphocytes (CBC) 0.7 K/uL (0.7-4.9); Absolute Monocytes 0.3 K/uL (0.1-1.3); Absolute Neutrophil 11.1 K/uL (1.8-8.0); Basophils % 0.2 % (0-1.3); Eosinophils % 0.9 % (0-4.4); Hematocrit 27.1 % (36.0-45.0); Lymphocytes % 5.8 % (15.3-44.8); MPV 7.7 fL (7.6-11.3); Monocytes % 2.4 % (3.3-12.3); RBC Red Blood Cell Count 2.73 M/uL (3.86-4.86)
[2018-04-21 06:19] LABS: Albumin 1.1 g/dL (3.4-5.0); Bilirubin Total 2.1 mg/dL (0.2-1.0); Potassium 3.3 mmol/L (3.5-5.1); Protein, Total 5.9 g/dL (6.4-8.2)
[2018-04-21] MEDS: METOPROLOL TAR 25 MG TAB PO SCH ×2 (07:18→17:49)
[2018-04-21] MEDS: SCOPOLAMINE HYDROBROMIDE PATCH TD SCH (07:19)
[2018-04-21 07:52] LABS: Anisocytosis 1+; Blood Morphology Comment NOTED (NOT SEEN); Platelet Estimate DECR; Polychromasia 1+
[2018-04-21 08:07] LABS: Toxic Granulation 1+
[2018-04-21] MEDS ORDERED: POTASSIUM 25 MEQ EFFERV TAB PO ONE (09:00)
[2018-04-21] MEDS: levETIRAcetam 1,000 MG in NA CHLORIDE 0.9% 100 ML IV SCH ×2 (10:02→20:11)
[2018-04-21] MEDS: CEFTRIAXONE/SWI 1gm 1 GM/10 ML SYR IV SCH (10:02)
[2018-04-21] MEDS: PANTOPRAZOLE 40 MG INJ IVP SCH ×2 (10:03→20:12)
[2018-04-21] MEDS: JUVEN PACKET PO SCH ×2 (10:09→20:12)
[2018-04-21] MEDS: FUROSEMIDE 20 MG/ 2ML VIAL IV SCH (10:09)
--- NOTE | 2018-04-21 10:31 | EKG ---
Test Date: 2018-04-19 Test Time: 14:25:55 Recruitment Internship: NIKOS MEASUREMENT RESULTS: Intervals: Rate: 70 MD: QRSD: 84 QT: 404 QTc: 436 Haslet: P: MD: QRS: -2 T: -6 INTERPRETIVE STATEMENTS: Sinus rhythm Normal ECG Compared to ECG 04/19/2018 14:25:10 Prolonged QT interval no longer present Electronically Signed On 04-20-18 08:11:42 CDT by Isaac Andrea
[2018-04-21] MEDS: Rifaximin 550 MG Tab PO SCH ×2 (10:33→20:11)
[2018-04-21] MEDS: MEDIHONEY 44 ML TOPICAL TUBE TOP SCH (10:54)
--- NOTE | 2018-04-21 14:01 | EEG ---
CHART: [id number] TEST ID#: [id number] DATE OF STUDY: 04/20/2018 THE EEG WAS RECORDED PORTABLE IN THE PATIENTS ROOM ON A 14 CHANNEL MACHINE. ELECTRODES WERE APPLIED IN THE USUAL MANNER USING THE INTERNATIONAL 10-20 SYSTEM. THIS STUDY IS COMPLETELY DOMINATED BY CONTINUOUS ELECTROMYOGRAM ARTIFACT AND CANNOT BE INTERPRETED PROPERLY. HOWEVER NO EPILEPTIFORM ACTIVITY IS SEEN. THERE ARE NO FOCAL OR LATERALIZING FEATURES. NO EPILEPTIFORM ACTIVITY APPEARS. SLEEP DID NOT OCCUR. HYPERVENTILATION WAS NOT PERFORMED. PHOTIC STIMULATION WAS NOT PERFORMED. IMPRESSION: THIS STUDY CANNOT BE INTERPRETED DUE TO NEAR CONTINUOUS MUSCLE ARTIFACT. HOWEVER, NO EPILEPTIFORM ACTIVITY IS APPARENT.
[2018-04-21] MEDS ORDERED: VANCOMYCIN 1GM/D5W 200 ML IVPB SCH (15:00)
--- NOTE | 2018-04-21 15:01 | P.PN ---
Subjective Date of Service: 04/21/18 Chief Complaint: Hepatic encephalopathy Pt seen and examined at bedside. No new changes since yesterday. Awaiting family (Son) for discussion of comfart Care and transition to Hospice Review of Systems 10-point ROS is otherwise unremarkable Physical Examination - Vital Signs Temperature: 97.5 F Blood Pressure: 137/62 Pulse: 69 Respirations: 27 Pulse Ox (%): 100 - Physical Exam General: In no apparent distress HEENT: Atraumatic, PERRLA, EOMI Neck: Supple, JVD not distended Respiratory: Normal air movement, Crackles/rales, Expiratory wheezes, Inspiratory wheezes Cardiovascular: Regular rate/rhythm, Normal S1 S2 Gastrointestinal: Normal bowel sounds, No tenderness Musculoskeletal: No tenderness Integumentary: No rashes Neurological: Abnormal tone, Abnormal sensation, Abnormal cranial nerve function , Abnormal reflexes Lymphatics: No axilla or inguinal lymphadenopathy - Studies Microbiology Data (last 24 hrs): 04/19/18 15:38 Catheterized Urine [place] Count - Final BETWEEN 10,000 & 100,000 CFU/ML 04/19/18 15:38 Catheterized Urine - Final Enterococcus Faecalis 04/20/18 06:30 Wound - Buttock Gram Stain - Final Medications List Reviewed: Yes Assessment And Plan - Current Problems (Diagnosis) (1) Acute CVA (cerebrovascular accident) Current Visit: Yes Status: Acute Plan: Acute CVA -MRI of the brain with: Very extensive acute nonhemorrhagic infarction changes involving the majority of the left cerebral hemisphere in the distribution of the left middle cerebral artery, and Extensive acute non hemorrhagic infarction of substantial portion of the right frontal lobe. -Neurology consulted. Reccs appreciated -Not a candidate for Anticoagulation or statin due to ESLD -Keppra for seizure prevention -Poor Prognosis (2) Liver cirrhosis Current Visit: Yes Status: Chronic Plan: ESLD with MELD score of 25 and poor prognosis -extensive discussion with the family regarding code status, Mortality and prognosis -Pt made DNR/DNI -Will continue conversation with Family today once son is present regarding comfort measures now that Neurology has evaluated patient Qualifiers: Hepatic cirrhosis type: unspecified hepatic cirrhosis Ascites presence: with ascites Qualified Code(s): K74.60 - Unspecified cirrhosis of liver; R18.8 - Other ascites (3) Anasarca Current Visit: Yes Status: Chronic Plan: IV lasix with albumin (4) HTN (hypertension) Current Visit: Yes Status: Chronic Qualifiers: Hypertension type: essential hypertension Qualified Code(s): I10 - Essential (primary) hypertension (5) Dementia Current Visit: Yes Status: Chronic Qualifiers: Dementia type: vascular dementia Dementia behavioral disturbance: without behavioral disturbance Qualified Code(s): F01.50 - Vascular dementia without behavioral disturbance (6) Stage III pressure ulcer Current Visit: Yes Status: Chronic Qualifiers: Pressure injury location: buttock Laterality: right Qualified Code(s): L89.313 - Pressure ulcer of right buttock, stage 3 - Plan Pending conversation with Family today once son is present regarding comfort measures now that Neurology has evaluated patient Discharge Plan: Other Plan to discharge in: Greater than 2 days - Code Status/Comfort Care Code Status Assessed: Yes Critical Care: No
[2018-04-21] MEDS ORDERED: FUROSEMIDE 40 MG/4 ML VIAL IV ONE (16:00)
[2018-04-21] MEDS: VANCOMYCIN 2 GM in NA CHLORIDE 0.9% 500 ML IVPB SCH (16:12)
--- NOTE | 2018-04-21 20:37 | CON ---
All the information has been obtained from the record as the patient with altered mental status, semi comatose. History Of Present Illness: This is a 72-year-old unfortunate female with the significant past medic al history of jail resident in [facility], found to have altered mental status, lethar gic. For that reason, was started on lactulose. Workup done and found to have hepatic failure with the ascites. The patient, on admission, creatinine 0.5, then underwent CT with the contrast for eval uation, creatinine started rising up. For that reason, we have been consulted. Reviewing the record from the jail, the patient not on any insulting medication. The patient on presentation was no hypotension, found to have severe anasarca. Allergies: NO KNOWN DRUG ALLERGIES. Home Medications: Include metoprolol, multivitamin, rivastigmine, tramadol, zinc. Past Medical History: Include hypertension, dementia, depression, cirrhosis, and anxiety. Past Surgical History: None obtainable. Family History: None obtainable. Social History: Lives in jail. The rest not obtainable. Review of Systems: Not obtainable. Physical Examination: Vital Signs: When I saw the patient, blood pressure 137/62, pulse of 69. Chest: Crackles, bilateral base. Heart: S1, S2. Regular. Abdomen: Soft, nontender. Ascites. Extremities: +3 edema. Laboratory Data: WBC 12.2, H and H 9.3/27.1, platelets 132, eosinophil 0.9%, absolute count for the eosinophil is only 100, sodium 142, potassium 3.3, bicarb 22, BUN 45, creatinine 1.2, GFR of 42, calc ium 7.2. C-reactive protein 125. Procalcitonin 1.3. Urinalysis, specific gravity of 1.030, rbc of 50, wbc of 10. ABG; pH 7.42, CO2 27, O2 118. CT, no hydronephrosis. Positive for ascites. MRA, no dissection. MRI, CVA. Chest x-ray showing cardiomegaly with congestion. Assessment And Plan: 1.Acute kidney injury, multifactorial, secondary to cardiorenal/hepatorenal superimposed with the to xic acute tubular necrosis, over volume. Currently, I am going to give the patient single dose of La six and we will monitor the patient. The patient has overall poor prognosis. 2.Anoxic encephalopathy, obstructive has been ruled out. We will try to establish better volume con trol and we will follow up. 3.Hypertension. We will utilize the blood pressure for more diuresis. 4.Anasarca. I am going to go ahead and send for protein, creatinine, TSH. Start the patient on diu resis since mostly it is confined secondary to cardiorenal and hepatorenal. 5.Anoxic encephalopathy and metabolic encephalopathy secondary to urinary tract infection and hepati c. We will follow up with the primary. 6.Urinary tract infection, started on antibiotic, culture showing multidrug resistant. I am going t o switch the patient because it is growing Enterococcus faecalis. We will switch the patient to vanc omycin and we will follow up. The patient has overall poor prognosis. TIGRE Voice ID: [id number] Report ID: [id number]
[2018-04-21 20:46] LABS: Magnesium 2.2 mg/dL (1.8-2.4); Phosphorus 3.3 mg/dL (2.5-4.9); Potassium 4.2 mmol/L (3.5-5.1)
[2018-04-22] MEDS: LACTULOSE 20 GM/30 ML UCUP PO SCH ×4 (01:24→18:00)
[2018-04-22 02:48] LABS: Urine Protein/Creatinine Ratio 0.41 ratio (<0.15)
[2018-04-22 04:44] LABS: Absolute Lymphocytes (CBC) 0.9 K/uL (0.7-4.9); Absolute Monocytes 0.3 K/uL (0.1-1.3); Absolute Neutrophil 16.9 K/uL (1.8-8.0); Basophils % 0.2 % (0-1.3); Eosinophils % 0.1 % (0-4.4); Lymphocytes % 4.9 % (15.3-44.8); Monocytes % 1.7 % (3.3-12.3); RBC Red Blood Cell Count 2.92 M/uL (3.86-4.86)
[2018-04-22 05:12] LABS: Blood Morphology Comment NOT SEEN (NOT SEEN); Platelet Estimate ADEQ; Urine White Blood Cell Casts OK
[2018-04-22 05:15] LABS: Albumin 1.1 g/dL (3.4-5.0); Bilirubin Total 1.8 mg/dL (0.2-1.0); Phosphorus 3.4 mg/dL (2.5-4.9); Potassium 3.6 mmol/L (3.5-5.1); Protein, Total 6.1 g/dL (6.4-8.2)
[2018-04-22 05:30] LABS: Thyroid Stimulating Hormone 5.22 uIU/mL (0.360-3.740)
[2018-04-22] MEDS ORDERED: POTASSIUM 25 MEQ EFFERV TAB PO ONE (05:51)
[2018-04-22] MEDS: METOPROLOL TAR 25 MG TAB PO SCH ×2 (06:14→17:59)
--- NOTE | 2018-04-22 09:37 | P.PN ---
Subjective Date of Service: 04/22/18 Chief Complaint: hepatic encephalopathy Subjective: No new changes Ms. Moore was admitted the other day for suspected hepatic encephalopathy. Patient ends up having bilateral MCA large diffuse infarctions. Dr. Moise consulted. Prognosis not well. Discussed with family this morning that there has been no neurological improvement. We further discussed need for hospice if possible with family. Family still deciding but seriously considering it at this point <Leif Latham - Last Filed: 04/22/18 09:27> Date of Service: 04/22/18 <Huy Ang - Last Filed: 04/22/18 14:18> Review of Systems is unable to be obtained (Comatose) <Leif Latham - Last Filed: 04/22/18 09:27> Physical Examination - Vital Signs Temperature: 96.5 F Blood Pressure: 111/56 Pulse: 58 Respirations: 25 Pulse Ox (%): 96 - Physical Exam General: Unresponsive, Comatose HEENT: Mucous membr. moist/pink, Abnormal EOM Respiratory: Rhonchi/gurgles Cardiovascular: Normal S1 S2, No gallops, No rubs, No murmurs, Edema Gastrointestinal: Normal bowel sounds, Soft and benign Musculoskeletal: No clubbing, No contractures, No erythema, No warmth, Swelling Neurological: Other (comatose patient. Decreased reflexes present. Myoclonic jerking noted to right face, jaw) - Studies Microbiology Data (last 24 hrs): 04/20/18 06:30 Wound - Buttock Gram Stain - Final 04/19/18 15:38 Catheterized Urine [place] Count - Final BETWEEN 10,000 & 100,000 CFU/ML 04/19/18 15:38 Catheterized Urine - Final Enterococcus Faecalis Medications List Reviewed: Yes <Leif Latham - Last Filed: 04/22/18 09:27> - Studies Microbiology Data (last 24 hrs): 04/20/18 06:30 Wound - Buttock Gram Stain - Final 04/19/18 15:38 Catheterized Urine [place] Count - Final BETWEEN 10,000 & 100,000 CFU/ML 04/19/18 15:38 Catheterized Urine - Final Enterococcus Faecalis <Huy Ang - Last Filed: 04/22/18 14:18> Assessment & Plan - Problems (Diagnosis) (1) Acute CVA (cerebrovascular accident) Current Visit: Yes Status: Acute (2) End stage liver disease Current Visit: Yes Status: Acute (3) Hepatic encephalopathy Current Visit: Yes Status: Acute (4) HTN (hypertension) Current Visit: Yes Status: Chronic Qualifiers: Hypertension type: essential hypertension Qualified Code(s): I10 - Essential (primary) hypertension Discharge Plan: Other (Hospice) <Leif Latham - Last Filed: 04/22/18 09:27> Physician Review Additional Text: Patient seen and evaluated with JANNA Curtis. Family at bedside. I explained current situation with family. Advance directives addressed. Patient with poor prognosis. I will recommend Hospice and comfort measures. Family seems agreeable but want to discuss with other family. Social work to provide more education and contacting Hospice. Patient would be a good candidate with inpatient hospice. Await for family to make final decision. Dr. Narvaez to take over care tomorrow. Time Spent Managing Pts Care (In Minutes): 55 <Huy Ang - Last Filed: 04/22/18 14:18>
[2018-04-22] MEDS: CEFTRIAXONE/SWI 1gm 1 GM/10 ML SYR IV SCH (10:02)
[2018-04-22] MEDS: FUROSEMIDE 20 MG/ 2ML VIAL IV SCH (10:02)
[2018-04-22] MEDS: PANTOPRAZOLE 40 MG INJ IVP SCH ×2 (10:02→22:24)
[2018-04-22] MEDS: Rifaximin 550 MG Tab PO SCH ×2 (10:03→22:24)
[2018-04-22] MEDS: JUVEN PACKET PO SCH ×2 (10:03→22:24)
[2018-04-22] MEDS: levETIRAcetam 1,000 MG in NA CHLORIDE 0.9% 100 ML IV SCH ×2 (10:03→22:23)
[2018-04-22] MEDS: MEDIHONEY 44 ML TOPICAL TUBE TOP SCH (10:04)
[2018-04-23] MEDS: LACTULOSE 20 GM/30 ML UCUP PO SCH ×4 (01:00→19:00)
[2018-04-23] MEDS: D5W 1,000 ML IV SCH ×2 (01:00→21:00)
[2018-04-23] MEDS: VANCOMYCIN 2 GM in NA CHLORIDE 0.9% 500 ML IVPB SCH (03:46)
[2018-04-23 06:35] LABS: Albumin 0.9 g/dL (3.4-5.0); Phosphorus 3.4 mg/dL (2.5-4.9)
[2018-04-23] MEDS: METOPROLOL TAR 25 MG TAB PO SCH ×2 (06:35→17:25)
[2018-04-23] MEDS: MEDIHONEY 44 ML TOPICAL TUBE TOP SCH (09:00)
[2018-04-23] MEDS: JUVEN PACKET PO SCH ×2 (09:00→21:28)
[2018-04-23] MEDS: levETIRAcetam 1,000 MG in NA CHLORIDE 0.9% 100 ML IV SCH ×2 (09:35→21:26)
[2018-04-23] MEDS: FUROSEMIDE 20 MG/ 2ML VIAL IV SCH (09:36)
[2018-04-23] MEDS: PANTOPRAZOLE 40 MG INJ IVP SCH ×2 (09:36→21:28)
[2018-04-23] MEDS: CEFTRIAXONE/SWI 1gm 1 GM/10 ML SYR IV SCH (09:36)
[2018-04-23] MEDS: Rifaximin 550 MG Tab PO SCH ×2 (09:36→21:28)
[2018-04-23] MEDS: SCOPOLAMINE HYDROBROMIDE PATCH TD SCH (13:00)
--- NOTE | 2018-04-23 16:27 | PN ---
Date of Progress Note: 04/23/2018 Chief Complaint: Mhqxu-mp-gmhshdz kidney injury, nonoliguric, associated with severe hyperazotemia, prerenal acute kidney injury with acute tubular necrosis, superimposed cardiorenal syndrome, hepatore nal syndrome associated with anasarca. Renal function has worsened since yesterday. Review of Systems: Unobtainable. The patient has severe stroke. She is obtunded and does not respond to questions. Physical Examination: Lungs: Few crackles at bases. Heart: S1 and S2. Abdomen: Soft. No rebound. No guarding. Extremities: Anasarca, 3+ edema in both legs. Laboratory Data: Sodium 142, potassium 4.0, chloride 112, CO2 20, BUN 64, creatinine 1.48, calcium w as 7.1, and phosphorus 3.4. Blood work yesterday showed sodium 142, potassium 3.6, chloride 111, CO2 23, BUN 55, creatinine 1.36, glucose 87, calcium 7.2, phosphorus 3.4, and bilirubin 1.8. Impression And Plan: 1.Acute kidney injury, nonoliguric. There is no indication to start dialysis. The patient is criti dino ill and the patient was found to have an extensive cerebrovascular accident. Further recommend ation from Neurology. 2.Hypertension. Blood pressure is in acceptable control. 3.Encephalopathy. The patient has hepatic encephalopathy. Also patient developed extensive stroke. Currently, she has the NG tube to suction. Monitor electrolytes. Adjust replacement as needed. C ontinue IV hydration to prevent hypernatremia. 4.The patient was found to have severe leukocytosis and microbiology tests were obtained to rule out urinary tract infection. The patient has urinary tract infection with Enterococcus and blood cultur es showed Streptococcus agalactiae and bacteremia. Wound culture showed multiple infection with Esch erichia coli, Proteus mirabilis, and Klebsiella pneumoniae. The patient will have antibiotics per pr imary team and I recommend Infectious Disease consult. PATRICK/GLENNA Voice ID: [id number] Report ID: [id number]
--- NOTE | 2018-04-23 16:33 | PN ---
Date of Progress Note: 04/23/2018 Subjective: Patient is seen and examined. Chart reviewed and case discussed with RN. The patient's family at the bedside. The patient is nonresponsive. The patient is awaiting hospice once family makes final decision. She has a very poor prognosis due to her strokes. Code status do not resuscitate. Medications reviewed Physical Examination: Vital signs: Temperature 96, heart rate 52, blood pressure 109/53, respirations 30, O2 96% on 2 L via nasal cannula. General: Obtunded, nonresponsive, ill-appearing elderly female, morbidly obese, BMI 50. CV: S1, S2. Regular rate and rhythm. Peripheral pulses weak. Respiratory: Diminished breath sounds. Rhonchi heard. Crackles present. The patient is tachypneic. Use of accessory muscles present. The patient starting to have some apneic breaths. Gastrointestinal: Abdomen is somewhat distended. Bowel sounds hypoactive. No palpable masses. Extremities: No clubbing or cyanosis. The patient has lower extremity edema. Neuro: The patient is largely nonresponsive, does not move her extremities, no posturing. Laboratory Data: Sodium 142, potassium is 4, CO2 20, BUN 64, creatinine 1.28, albumin 0.92. Wound culture is growing Klebsiella, E. coli, and proteus. Urine culture growing Enterococcus faecalis. Blood cultures growing out Streptococcus agalactiae. Assessment And Plan: A 72-year-old female with; 1. Acute cerebrovascular accident. The patient had massive stroke and is nonresponsive. The patient has been evaluated by Neurology. She has an overall very poor prognosis. 2. End-stage liver disease. 3. Hepatic encephalopathy. 4. Essential hypertension, currently hypotensive. 5. Morbid obesity. 6. UTI enterococcus 7. Bacteremia: strep 8. Wound infection: klebsiella, ecoli, proteus Plan: Family agrees with hospice care; however, son wants to wait for other family members before making final decision. He understands the patient's condition is terminal and she will likely of her condition within the next few days to weeks. The patient will require inpatient hospice. We will transfer to hospice care once family makes their final decision. /GLENNA Voice ID: [id number] Report ID: [id number] CARY
--- NOTE | 2018-04-23 16:33 | PN ---
Date of Progress Note: 04/22/2018 Chief Complaint: Erbhj-pu-tpgopyf kidney injury, hepatorenal syndrome severe, mental status changes. The patient was found to have extensive CVA. The patient has NG tube because of ileus and for protec tion to prevent aspiration pneumonia. The patient presented to the hospital because of altered menta l status changes. She was found to have hepatic encephalopathy. Nephrology consultation was request ed for acute kidney injury. The patient has acute kidney injury, nonoliguric, multifactorial seconda ry to cardiorenal, hepatorenal syndrome, superimposed with acute tubular necrosis with anasarca. The patient received Lasix. The patient currently is on IV fluids for mild hydration. The patient has severe encephalopathy due to stroke and hepatic encephalopathy. Review of Systems: Unobtainable. Physical Examination: Lungs: Few crackles at bases. Heart: S1 and S2. ABDOMEN: Soft, benign. Extremities: 3+ edema. Laboratory Data: BUN 45, creatinine 1.2. The patient's blood work revealed hemoglobin 9.6, WBC 18.2 , platelet count 137,000. Chemistry; sodium 142, potassium 4.0, chloride 112, CO2 20, BUN 64, creati nine 1.48, calcium 7.1, phosphorus 3.4. Impression And Plan: 1.Acute kidney injury, nonoliguric, associated with hepatorenal syndrome. The patient has anasarca. Lasix will be used for volume control. The patient although will require IV fluids for hydration. The patient currently has NG tube through suction because of ileus. 2.Extensive cerebrovascular accident. Further recommendation from primary team. 3.Hypertension. Blood pressure controlled. 4.Hepatic encephalopathy. The patient received lactulose. 5.The patient has nonoliguric urine output. The patient does not require dialysis. Plan is to tacho tor electrolytes. Avoid nephrotoxic medication. EB/MODL Voice ID: [id number] Report ID: [id number]
[2018-04-24] MEDS: LACTULOSE 20 GM/30 ML UCUP PO SCH ×4 (01:00→19:00)
[2018-04-24 05:20] LABS: Albumin 0.9 g/dL (3.4-5.0); Phosphorus 3.4 mg/dL (2.5-4.9); Potassium 3.8 mmol/L (3.5-5.1)
[2018-04-24] MEDS: METOPROLOL TAR 25 MG TAB PO SCH ×3 (06:44→18:53)
[2018-04-24] MEDS: FUROSEMIDE 20 MG/ 2ML VIAL IV SCH (09:00)
[2018-04-24] MEDS ORDERED: POTASSIUM 25 MEQ EFFERV TAB PO ONE (09:00)
[2018-04-24] MEDS: JUVEN PACKET PO SCH ×2 (09:00→21:35)
[2018-04-24] MEDS: MEDIHONEY 44 ML TOPICAL TUBE TOP SCH (09:00)
[2018-04-24] MEDS: levETIRAcetam 1,000 MG in NA CHLORIDE 0.9% 100 ML IV SCH ×2 (10:14→21:32)
[2018-04-24] MEDS: MORPHINE 2 MG/ML SYR IV PRN ×2 (10:14→19:01)
[2018-04-24] MEDS: CEFTRIAXONE/SWI 1gm 1 GM/10 ML SYR IV SCH (10:15)
[2018-04-24] MEDS: Rifaximin 550 MG Tab PO SCH ×2 (10:15→21:34)
[2018-04-24] MEDS: PANTOPRAZOLE 40 MG INJ IVP SCH ×2 (10:15→21:34)
[2018-04-24] MEDS: D5W 1,000 ML IV SCH (15:58)
[2018-04-24] MEDS: VANCOMYCIN 2 GM in NA CHLORIDE 0.9% 500 ML IVPB SCH (16:00)
[2018-04-25] MEDS: LACTULOSE 20 GM/30 ML UCUP PO SCH ×3 (01:41→13:00)
--- NOTE | 2018-04-25 02:15 | PN ---
Date of Progress Note: 04/24/2018 Chief Complaint: Oafjv-gc-ezepyan kidney injury, nonoliguric associated with severe hyperazotemia pr erenal, acute kidney injury with acute tubular necrosis superimposed on cardiorenal syndrome, hepator enal syndrome associated with anasarca. Renal function has not improved over last 24 hours. Review of Systems: Unobtainable. The patient is obtunded and does not respond to questions. Physical Examination: Lungs: Clear to auscultation bilaterally. Heart: S1, S2. Abdomen: Soft, benign. Extremities: Edema present. Impression And Plan: 1.Acute on chronic kidney injury. There is no indication to start dialysis. The patient is critica l ill. The patient will have a workup for acute kidney injury. 2.Severe altered mental status. The patient was found to have extensive cerebrovascular accident. 3.Encephalopathy. The patient has hepatic encephalopathy. Continue to control ammonia level. 4.Continue IV hydration to prevent hypernatremia. 5.The patient has NG tube to suction for ileus control. 6.The patient was found to have severe leukocytosis and microbiology tests were obtained to rule out urinary tract infection. The patient has urinary tract infection with enterococcus. Blood culture shows Streptococcus agalactiae bacteremia. Wound cultures show multiple infection with E. coli, prot eus mirabilis and klebsiella pneumoniae. Continue antibiotics per primary team and Infectious Disease. PATRICK/MODL Voice ID: [id number] Report ID: [id number]
--- NOTE | 2018-04-25 03:45 | DS ---
Date of Discharge: 04/24/2018 Consultants: Marie Silva M.D. and Emmy Mack M.D. with Nephrology. Sánchez Moise M.D. with Neurology. Procedures: EEG on 04/20/2018: Study cannot be interpreted due to near continuous muscle artifact, however, no epileptiform activity is apparent. Admitting Diagnoses: 1. Hepatic encephalopathy. 2. End-stage liver disease. 3. Coagulopathy. Discharge Diagnoses: 1. Acute cerebrovascular accident. 2. End-stage liver disease. 3. Hepatic encephalopathy. 4. Hypotension. 5. Morbid obesity, BMI of 49. 6. History of essential hypertension, currently hypotensive. Hospital Course: The patient is a 72-year-old female with past medical history of end-stage liver disease, hypertension, dementia, depression, comes in [facility] the [facility] for confusion, found to be encephalopathic due to her liver disease. CT scan of the brain was done which was negative. The patient was started on lactulose. CT scan of the abdomen and pelvis was done which showed a small cirrhotic liver suspected and right pleural effusion and atelectasis. The patient did not do well over the course of the hospital stay. She had some confusion, did not improve. MRI of the brain was done to rule out other neurological causes and showed extensive acute nonhemorrhagic infarction involving the left cerebellar hemisphere in the distribution of the left MCA and extensive non-acute nonhemorrhagic infarction in the substantial portion of the right frontal lobe. There was no intracranial hemorrhage. No midline shift. The patient was seen by Neurology, Dr. Moise. EEG was done which was negative for epileptiform activity. The patient overall has poor prognosis due to her massive strokes including the left MCA and the right side as well. Angiogram also noted anterior cerebral artery and posterior cerebral artery branches showing diminished size. The patient was then recommended to be discharged to hospice as the patient do not have much quality of life remaining. The patient's family made the patient DNR; however, the patient still has not transition to hospice. Son wants to wait for other family members. The patient did have some acute kidney injury as well. Nephrology was consulted. The patient had multiple positive cultures including Streptococcus agalactiae in the blood and has a wound from the buttocks growing out Klebsiella E. coli and Proteus. The E. coli is ESBL producing. The patient will be discharged to inpatient hospice once accepted. Physical Examination: General: Asleep, minimal response to sternal rub. Agonal breathing. Morbidly obese, ill-appearing female. CV: S1, S2. Pulses weak. Respiratory: Diminished breath sounds. Gastrointestinal: Abdomen is soft, distended. Bowel sounds positive. Extremities: No clubbing, cyanosis. The patient has peripheral edema. Neuro: Does not open eyes. Minimal responsiveness to painful stimuli and does not move extremities. Total time spent discharging the patient was 45 minutes. Code status addressed SA/MODL Voice ID: [id number] Report ID: [id number] MTDD
[2018-04-25 05:40] LABS: Albumin 0.9 g/dL (3.4-5.0); Phosphorus 3.8 mg/dL (2.5-4.9); Potassium 4.1 mmol/L (3.5-5.1)
[2018-04-25] MEDS: METOPROLOL TAR 25 MG TAB PO SCH (06:49)
[2018-04-25] MEDS ORDERED: VANCOMYCIN 2 GM in NA CHLORIDE 0.9% 500 ML IVPB SCH (09:00)
[2018-04-25] MEDS: levETIRAcetam 1,000 MG in NA CHLORIDE 0.9% 100 ML IV SCH (09:44)
[2018-04-25] MEDS: CEFTRIAXONE/SWI 1gm 1 GM/10 ML SYR IV SCH (09:45)
[2018-04-25] MEDS: PANTOPRAZOLE 40 MG INJ IVP SCH (09:45)
[2018-04-25] MEDS: FUROSEMIDE 20 MG/ 2ML VIAL IV SCH (09:45)
[2018-04-25] MEDS: MEDIHONEY 44 ML TOPICAL TUBE TOP SCH (09:46)
[2018-04-25] MEDS: Rifaximin 550 MG Tab PO SCH (09:46)
[2018-04-25] MEDS: JUVEN PACKET PO SCH (09:56)
--- NOTE | 2018-04-25 14:22 | P.DS ---
Admission Date: 04/20/18 Discharge Date: 04/25/18 Primary Care Provider: none Disposition: ROUTINE DISCHARGE Discharge Condition: GOOD Reason for Admission: hepatic encephalopathy Consultations: Neurology-Dr. Moise Nephrology-Dr. Mack Procedures: MRI Brain: FINDINGS: No intracranial hemorrhage is present and no focal mass lesion identified. There is no mass effect, edema or shift of midline structures. Underlying atrophy and chronic ischemic changes are noted with ventricles in proportion. Diffusion-weighted imaging shows extensive abnormal hyperintense signal along the gyri of the bilateral frontal lobes left parietal lobe and the lateral aspect of the left occipital lobe and posterior left temporal lobe. A few punctate patchy areas of hyperintense signal are present in the posterior right temporal lobe. Abnormal signal extends deeper into the white matter of the left frontal and parietal lobes. All areas have corresponding diminished signal on ADC mapping. Post-contrast view show no abnormal enhancement of the brain parenchyma. There is thickened but does not abnormally enhance. No focal dural based mass. Small fluid collection along the left frontal lobe is probably a small chronic subdural hygroma. This is not an acute finding. Mastoid air cells and paranasal sinuses are clear. IMPRESSION: Very extensive acute nonhemorrhagic infarction changes involving the majority of the left cerebral hemisphere in the distribution of the left middle cerebral artery. Extensive acute nonhemorrhagic infarction of substantial portion of the right frontal lobe. No intracranial hemorrhage. There is no significant mass effect, edema or shift of midline structures. Underlying atrophy and chronic ischemic change. MRA Brain: FINDINGS: Distal vertebral arteries are codominant. No focal basilar artery abnormality seen. Distal internal carotid artery show no significant findings. The M1 branches of each middle cerebral artery show atherosclerotic change. There is truncation or nonvisualization of the M2 and distal branches of each middle cerebral artery distribution. This generally matches the large infarction changes seen on the MR brain examination. Anterior cerebral artery vessels are small but not occluded. Posterior cerebral arteries are small in the P1 segments. More peripheral FIELD ARTILLERY BASIC branches are poorly visualized. There is no matching acute infarction on the CT study in the middle cerebral artery distributions. IMPRESSION: Truncated is bilateral middle cerebral artery M2/M3 branches. This pattern generally matches the extensive MCA distribution infarction changes on the MRI brain examination. The distal internal carotid artery's and basilar artery show no significant changes. The anterior cerebral and posterior cerebral artery branches show diminished size and truncation in the posterior cerebral arteries. There are no matching acute infarction changes in these distributions. MRA Neck: FINDINGS: Aortic arch is 3 vessel with no origin stenosis. Origins of each vertebral artery are normal. Vertebral arteries are codominant. No dissection, stenosis or acute vertebral artery finding. No basilar artery abnormality. Imaged portions of the subclavian arteries show no significant findings. Bilateral common carotid artery show no dissection or significant stenosis. No aneurysm or vascular malformation. There is a short segment bandlike narrowing at the origin of the bulb. This is probably not hemodynamically significant. No significant stenoses seen in the bilateral internal carotid arteries. IMPRESSION: No dissection or significant atherosclerotic changes in the cervical carotid or vertebral arteries. No basilar artery stenosis. Medical Problem List: Hepatic encephalopathy with end-stage liver disease and coagulopathy complicated with acute very extensive nonhemorrhagic infarct involving the majority of the left cerebral hemisphere in the distribution of the left middle cerebral artery and extensive acute nonhemorrhagic infarct of substantial portion of the right frontal lobe Hypotension secondary to sepsis with multiple infections including UTI-urine culture positive for Enterococcus, bacteremia- blood cultures positive for Streptococcus, and buttocks ulcer/wound-cultures positive for Klebsiella, Proteus and E coli-ESBL Acute renal injury Anemia of chronic disease History of hypertension Morbid obesity, BMI 49 Brief History of Present Illness: 72-year-old female presented emergency room with altered mental status. Patient was living at a care home. Patient was found by son at the care home with arm dangling from the bed. She appeared lethargic. She was difficult to arouse. Patient was sent to the ER for further evaluation. Patient has advanced liver disease with meld score of 25. Patient with significant abnormalities. Hepatic encephalopathy is suspected. Further workup followed. Patient admitted for further evaluation. Hospital Course: Patient presented with hepatic encephalopathy with end-stage liver disease and coagulopathy. Patient also found to have acute very extensive nonhemorrhagic infarct involving the majority of the left cerebral hemisphere in the distribution of the left middle cerebral artery and extensive acute nonhemorrhagic infarct of substantial portion of the right frontal lobe. This was further complicated with hypotension secondary to sepsis with multiple infections including UTI-urine culture positive for Enterococcus, bacteremia- blood cultures positive for Streptococcus, and buttocks ulcer/wound-cultures positive for Klebsiella, Proteus and E coli-ESBL. During the course of her stay patient was evaluated by nephrology and neurology. Patient remained on IV antibiotic therapy and supportive care. Her condition did not improve. Case discussed in detail with Neurology and Nephrology. Patient has poor prognosis due to her massive strokes and end-stage liver disease. This was addressed in detail with family. Family understands that her condition would not improve. Advanced directives were addressed. Patient remained do not resuscitate. Hospice education was provided. After a final discussion with family, they have decided on hospice. IV antibiotic therapy and fluids to be stopped. Will continue with comfort measures only. Patient will enter inpatient hospice. Vital Signs/Physical Exam: Temp Pulse Resp BP Pulse Ox 97.4 F 61 22 H 107/52 L 97 04/25/18 12:00 04/25/18 12:00 04/25/18 12:00 04/25/18 12:00 04/25/18 12:00 General: Other (Patient obtunded. No response noted) Respiratory: Crackles/rales (Bilateral) Cardiovascular: Normal pulses, Regular rate/rhythm Gastrointestinal: No rebound, No guarding, Other, Ascites Integumentary: Other (Edema to the lower extremities) Laboratory Data at Discharge: WBC 18.2 K/uL (4.3-10.9) H D 04/22/18 04:35 Hgb 9.6 g/dL (12.0-15.0) L 04/22/18 04:35 Hct 29.0 % (36.0-45.0) L 04/22/18 04:35 Plt Count 137 K/uL (152-406) L 04/22/18 04:35 PT 42.9 SECONDS (9.5-12.5) H 04/20/18 18:34 INR 3.83 04/20/18 18:34 Sodium 141 mmol/L (136-145) 04/25/18 04:27 Potassium 4.1 mmol/L (3.5-5.1) 04/25/18 04:27 BUN 75 mg/dL (7-18) H 04/25/18 04:27 Creatinine 1.72 mg/dL (0.55-1.3) H 04/25/18 04:27 Glucose 81 mg/dL (74-106) 04/25/18 04:27 Phosphorus 3.8 mg/dL (2.5-4.9) 04/25/18 04:27 Magnesium 2.2 mg/dL (1.8-2.4) 04/21/18 20:15 Total Bilirubin 1.8 mg/dL (0.2-1.0) H 04/22/18 04:35 AST 92 U/L (15-37) H 04/22/18 04:35 ALT 28 U/L (12-78) 04/22/18 04:35 Alkaline Phosphatase 216 U/L (45-117) H 04/22/18 04:35 Home Medications: Guaifenesin/Dextromethorphan [Guaifenesin Dm Syrup] 10 ml PO Q4H PRN 04/19/18 Metoprolol Tartrate 1 tab PO BID 04/19/18 Multivitamin [Multiple Vitamins] 1 each PO DAILY 04/19/18 Rivastigmine Tartate 1.5 Mg 1 cap PO BID 04/19/18 Tramadol HCl [Ultram] 2 tab PO Q6H PRN 04/19/18 Zinc 220 mg PO DAILY 04/19/18 Patient Discharge Instructions: Patient to enter inpatient hospice. Continue with comfort measures. Further adjustment in medication can be done by hospice. Diet: NPO Activity: Bedrest Time spent managing pt's care (in minutes): 55
--- NOTE | 2018-04-26 04:28 | PN ---
Date of Progress Note: 04/25/2018 Chief Complaint: Acute on chronic kidney injury, nonoliguric, associated with severe hyperazotemia, prerenal azotemia with acute tubular necrosis superimposed with cardiorenal syndrome, hepatorenal syn drome associated with an anasarca. Subjective: The patient remains obtunded. She was found to have extensive CVA. She has NG tube colleen raul for ileus. Review of Systems: Unobtainable. The patient is very obtunded, does not respond to questions. Physical Examination: Lungs: Clear to auscultation bilaterally. Heart: S1, S2. Abdomen: Soft, benign. Extremities: Edema present. Impression And Plan: 1.Acute on chronic kidney injury. There is no indication to start dialysis. Continue IV hydration and monitor electrolytes. 2.Severe altered mental status. The patient has a CVA. She was seen by urologist. 3.Encephalopathy. The patient has hepatic encephalopathy. Monitor ammonia level. 4.Leukocytosis. Microbiology test was obtained to rule out urinary tract infection. The patient bernard s urinary tract infection with enterococcus. Blood cultures showed streptococcus agalactiae bacterem ia. Wound cultures showed multiple infections with E. coli, Proteus mirabilis, and Klebsiella pneumoniae. Continue antibiotics as per Infectious Disease. EB/MODL Voice ID: [id number] Report ID: [id number]
== END 2018-04-25 15:39 | disposition hospice, inpatient (51) | DRG 441 ==
LOC: ER 14:10 → ERHOLD 17:41 → 2ND 20:04 → 3RD-ICU 04-20 09:33 → OBSVTOIN 04-20 09:51 → 2ND 04-20 22:43
PROVIDERS: ADMIT Family Medicine; ATTEND Family Medicine
PROC: 0D9670Z Drainage of Stomach with Drainage Device, Via Natural or Artificial Opening (ICD-10-PCS; principal; 2018-04-20)
PROC: 02HV33Z Insertion of Infusion Device into Superior Vena Cava, Percutaneous Approach (ICD-10-PCS; 2018-04-20)
PROC: B548ZZA Ultrasonography of Superior Vena Cava, Guidance (ICD-10-PCS; 2018-04-20)
DX: K72.90 Hepatic failure, unspecified without coma (principal); I63.9 Cerebral infarction, unspecified; A40.9 Streptococcal sepsis, unspecified; L89.313 Pressure ulcer of right buttock, stage 3; N17.0 Acute kidney failure with tubular necrosis; K76.7 Hepatorenal syndrome; R65.20 Severe sepsis without septic shock; G93.40 Encephalopathy, unspecified; N39.0 Urinary tract infection, site not specified; N17.9 Acute kidney failure, unspecified; Z68.42 Body mass index [BMI] 45.0-49.9, adult; D68.4 Acquired coagulation factor deficiency; R18.8 Other ascites; G93.1 Anoxic brain damage, not elsewhere classified; K56.7 Ileus, unspecified; K74.60 Unspecified cirrhosis of liver; B95.2 Enterococcus as the cause of diseases classified elsewhere; E66.01 Morbid (severe) obesity due to excess calories; Z66 Do not resuscitate; Z51.5 Encounter for palliative care; R60.1 Generalized edema; F01.50 Vascular dementia, unspecified severity, without behavioral disturbance, psychotic disturbance, mood disturbance, and anxiety; B96.20 Unspecified Escherichia coli [E. coli] as the cause of diseases classified elsewhere; B96.4 Proteus (mirabilis) (morganii) as the cause of diseases classified elsewhere; B96.1 Klebsiella pneumoniae [K. pneumoniae] as the cause of diseases classified elsewhere; I95.9 Hypotension, unspecified; D63.8 Anemia in other chronic diseases classified elsewhere; I10 Essential (primary) hypertension
CPT/HCPCS: 36415; 51702; 70450; 70544; 70549; 70553; 71045; 74018; 74177; 76700; 80048; 80053; 80069; 80076; 80202; 81001; 81003; 81015; 82140; 82550; 82570; 82805; 82962; 83735; 84100; 84132; 84145; 84156; 84439; 84443; 85025; 85610; 86140; 87040; 87070; 87077; 87086; 87088; 87186; 87205; 93005; 95816; 99285; A9577; C9113; G0378; J0696; J1940; J1953; J2270; J3430; J7030; P9047; Q9967

== ENCOUNTER 2018-04-25 16:36 | Inpatient (IN) | payer OTHER ==
[2018-04-25] MEDS ORDERED: LORazepam 2 MG/ML VIAL IV PRN (17:06)
[2018-04-25] MEDS ORDERED: MORPHINE 2 MG/ML SYR IV PRN (17:07)
[2018-04-25] MEDS ORDERED: ONDANSETRON 4 MG/2 ML VIAL IV PRN (17:08)
[2018-04-25] MEDS ORDERED: SCOPOLAMINE HYDROBROMIDE PATCH TD SCH (18:00)
[2018-04-25] MEDS: LORazepam 2 MG/ML VIAL IV SCH (21:28)
[2018-04-26] MEDS: LORazepam 2 MG/ML VIAL IV SCH ×2 (08:22→22:20)
== END 2018-04-27 00:56 | disposition expired | DRG 951 ==
LOC: 2ND 16:36
PROVIDERS: ADMIT Family Medicine; ATTEND Family Medicine
DX: Z51.5 Encounter for palliative care (principal); Z86.73 Personal history of transient ischemic attack (TIA), and cerebral infarction without residual deficits